=== PATIENT | male | born 1935 | race Caucasian/White ===

== ENCOUNTER 2017-04-21 05:11 | Emergency (ER) | payer MEDICARE, OTHER ==
[~2017-04-21 05:11] MED LIST: ACET500CAP PO; ASAB PO; BETAP120 PO; CARDCD180 PO; CIP5 PO; CODEINE #3 PO; COSAMIN DS1 TAB PO; DILT-XR120 MG PO; DSS PO; FLOMAX4 PO; GLUCCHONDR PO; HYDROCHLOROT12.5 MG PO; HYDROCHLOROT25 MG PO; JANTOVEN1 MG PO; JANTOVEN5 MG PO; JANTOVEN6 MG PO; JANTOVEN7.5 MG PO; LOP100 PO; LOP50 PO; MULTIPLE VIT PO; MULTIVITAMI1 PO; PRIN20 PO; PROSCAR5 PO; RAPAFLO8 MG PO; RED YEAS1 OR; REFRESH TEAR0.5 % OPH; SPIRO25 PO; T3 PO; TYLENOL #3 PO; VICKS SINEX12 HR NAS; VICODINTAB PO; ZOCOR20 PO
[2017-04-21 06:02] LABS: BASOPHILS 0.3 %; BASOPHILS ABSOLUTE 0.02 10/3/uL (0.0-0.16); EOSINOPHILS 2.2 %; EOSINOPHILS ABSOLUTE 0.14 10/3/uL (0.0-0.53); ER CBC TAT 0 Hrs 05 Mins; HEMATOCRIT 42.6 % (40.0-51.0); HEMOGLOBIN 14.7 g/dL (13.6-17.8); IMMATURE GRANULOCYTES 0.3 %; IMMATURE GRANULOCYTES ABSOLUTE 0.02 10/3/uL (0.0-0.11); LYMPHOCYTES 14.7 %; LYMPHOCYTES ABSOLUTE 0.94 10/3/uL (0.67-4.30); MANUAL DIFF NO %; MEAN CORPUS HGB CONC 34.5 g/dL (32.0-36.0); MEAN CORPUSCULAR HEMOGLOB 31.3 pg (26.0-34.0); MEAN CORPUSCULAR VOLUME 90.6 fL (80-100); MEAN PLATELET VOLUME 9.2 fL (9.2-13.0); MONOCYTES 12.7 %; MONOCYTES ABSOLUTE 0.81 10/3/uL (0.21-1.20); NEUTROPHILS 69.8 %; NEUTROPHILS ABSOLUTE 4.45 10/3/uL (2.02-8.40); PLATELET COUNT 250 10/3/uL (150-400); RBC DISTRIBUTION WIDTH 12.8 % (12.0-16.0); WHITE BLOOD CELLS 6.4 10/3/uL (4.5-10.5)
[2017-04-21 06:18] LABS: CALCIUM, SERUM 9.4 MG/DL (8.5-10.4); CHLORIDE, SERUM 99 MMOL/L (96-112); CO2 (CARBON DIOXIDE) 30 MMOL/L (24-34); CREATININE 0.96 MG/DL (0.70-1.30); GFR AFRICAN AMERICAN 86 ML/MIN (>=60); GFR NON AFRICAN AMERICAN 74 ML/MIN (>=60); POTASSIUM, SERUM 3.6 MMOL/L (3.5-5.3); SGOT(AST) 16 U/L (5-40); SGPT(ALT) 22 U/L (5-65); SODIUM, SERUM 135 MMOL/L (135-148); TOTAL BILIRUBIN 0.6 MG/DL (0-1.2); TROPONIN I <0.02 NG/ML (<0.05)
[2017-04-21 06:19] LABS: A/G RATIO 1.2 (0.7-1.9); ALBUMIN 3.6 G/DL (3.5-5.0); ALKALINE PHOSPHATASE 74 U/L (45-117); BUN (BLOOD UREA NITROGEN) 21 MG/DL (6-23); GLOBULIN 3.1 G/DL (2.5-4.1); GLUCOSE, SERUM 106 MG/DL (60-99); TOTAL PROTEIN 6.7 G/DL (6.0-8.5)
[2017-04-21 06:25] LABS: ASCORBIC ACID (UR NOT ORDER) 20 (NEG); BILIRUBIN, URINE NEGATIVE (NEG); ER URINALYSIS TAT 0 Hrs 09 Mins; KETONE, URINE NEGATIVE (NEG); LEUKOCYTE ESTERASE(NOT OR NEG (NEG); NITRITE (URINE) NEG (NEG); WBC (NOT ORDERED) (RFLEX) 1 (0-5)
== END 2017-04-21 08:00 | disposition home or self-care (01) ==
LOC: ER 05:11
PROVIDERS: Specialist
DX: R10.9 Unspecified abdominal pain (principal); R30.0 Dysuria; R07.9 Chest pain, unspecified; I10 Essential (primary) hypertension; Z95.1 Presence of aortocoronary bypass graft; Z88.8 Allergy status to other drugs, medicaments and biological substances; Z79.01 Long term (current) use of anticoagulants; Z79.899 Other long term (current) drug therapy
CPT/HCPCS: 71010; 74176; 80053; 81001; 84484; 85025; 93005; 99285